=== PATIENT | female | born 1990 | race Two or more races ===

== ENCOUNTER 2022-05-26 21:45 | Observation (INO) | payer OTHER ==
[~2022-05-26] VITALS: Ht 160 cm; Wt 54.4 kg
[2022-05-26 21:59] VITALS: BP 109/58
[2022-05-26] MEDS ORDERED: PNV1TABL5 PO (22:28)
[2022-05-26] MEDS ORDERED: cefTRIAXone 1,000 MG in LIDOCAINE MPF 1% 2.1 ML IM SCH (22:45)
[2022-05-26] MEDS ORDERED: MORPHINE SULFATE 5 MG/ML VIAL IVP PRN (22:50)
[2022-05-26] MEDS ORDERED: MORPHINE SULFATE 5 MG/ML VIAL IM PRN (22:55)
[2022-05-26] MEDS ORDERED: cefTRIAXone 1,000 MG VIAL ONE (23:02)
[2022-05-26 23:03] LABS: APPEARANCE,URINE CLEAR (CLEAR); BILIRUBIN,URINE NEGATIVE (NEGATIVE); BLOOD, URINE 3+ (NEGATIVE); COLOR,URINE YELLOW (YELLOW); LEUKOCYTE ESTERASE ,URINE NEGATIVE (NEGATIVE); NITRITE, URINE POSITIVE (NEGATIVE); UGLUCOSE NEGATIVE (NEGATIVE)
[2022-05-26] MEDS ORDERED: LIDOCAINE 1% 500 MG/50 ML VIAL ONE (23:07)
[2022-05-26] MEDS ORDERED: MORPHINE SULFATE 10 MG/ML VIAL ONE (23:16)
[2022-05-26 23:19] LABS: RBC,URINE 11-20 (MOD) /HPF (0-5); WBC,URINE 0-5 /HPF (0-5)
[2022-05-26 23:22] VITALS: BP 92/42
[2022-05-27] MEDS ORDERED: AMOX1TAB7 PO (00:34)
== END 2022-05-27 00:28 | disposition home or self-care (01) ==
LOC: MLD 21:45
PROVIDERS: ADMIT Obstetrics & Gynecology; ATTEND Obstetrics & Gynecology
DX: O23.42 Unspecified infection of urinary tract in pregnancy, second trimester (principal); Z20.822 Contact with and (suspected) exposure to COVID-19; Z3A.20 20 weeks gestation of pregnancy
CPT/HCPCS: 81001; 87086; 87426; 96372; G0378; J0696; J2001; J2270

== ENCOUNTER 2022-08-24 04:20 | Emergency (ER) | payer OTHER ==
[~2022-08-24] VITALS: Ht 160 cm; Wt 65.8 kg
[~2022-08-24 04:20] MED LIST: AMOX1TAB7 PO; PNV1TABL5 PO
[2022-08-24 04:32] VITALS: BP 109/65; PULSE 77; RESP 21; TEMP 98.2; O2SAT 99
--- NOTE | 2022-08-24 04:39 | NUR ---
PT AMBULATE TO ROOM 7
--- NOTE | 2022-08-24 04:58 | NUR ---
32 YO F BIB SELF C/O SORE THROAT, SOB, EPISTAXIS, AND LEFT LEG PAIN X 2 DAYS. 10/10 PAIN IN THROAT. PT STATES "FEELS LIKE MY THROAT IS CLOSING AND ITS CAUSING ME PAIN". PT ON BEDSIDE CARDIAC MONITORING AND CONTINUOUS PULSE OX. VS WITHIN NORMAL LIMITS. PT IS 30 WEEKS . AXO4. CALL LIGHT WITHIN REACH. NKDA NO MED HX
--- NOTE | 2022-08-24 05:16 | NUR ---
DR MIRANDA AT BEDSIDE.
[2022-08-24 05:30] VITALS: BP 111/63; PULSE 81; RESP 21; O2SAT 98
[2022-08-24 05:57] LABS: APPEARANCE,URINE CLEAR (CLEAR); BILIRUBIN,URINE NEGATIVE (NEGATIVE); BLOOD, URINE NEGATIVE (NEGATIVE); COLOR,URINE YELLOW (YELLOW); LEUKOCYTE ESTERASE ,URINE NEGATIVE (NEGATIVE); NITRITE, URINE NEGATIVE (NEGATIVE); UGLUCOSE NEGATIVE (NEGATIVE)
[2022-08-24] MEDS ORDERED: ACET-10509 PO (06:43)
--- NOTE | 2022-08-24 06:48 | NUR ---
COVID SWAB COLLECTED AND SENT
--- NOTE | 2022-08-24 06:59 | NUR ---
Patient discharged with v/s stable. Written and verbal after care instructions given and explained. Patient verbalized understanding. Ambulatory with steady gait. All questions addressed prior to discharge. Advised to follow up with PMD.
== END 2022-08-24 06:59 | disposition home or self-care (01) ==
LOC: MED 04:20
DX: O26.892 Other specified pregnancy related conditions, second trimester (principal); J02.9 Acute pharyngitis, unspecified; Z3A.28 28 weeks gestation of pregnancy; Z79.899 Other long term (current) drug therapy; Z20.822 Contact with and (suspected) exposure to COVID-19
CPT/HCPCS: 81003; 99283